=== PATIENT | male | born 1975 | race Caucasian/White ===

== ENCOUNTER 2018-05-23 20:54 | Emergency (ER) | payer BC, OTHER ==
[2018-05-23] MEDS ORDERED: CEPHALEXIN 500 MG CAP PO ONE (21:18)
[2018-05-23] MEDS ORDERED: TDAP ADULT 0.5 ML INJ (BOOSTRIX) IM ONE (21:18)
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
[2018-05-23 22:33] VITALS: BP 109/75
== END 2018-05-23 22:33 | disposition home or self-care (01) ==
PROC: 3E0234Z Introduction of Serum, Toxoid and Vaccine into Muscle, Percutaneous Approach (ICD-10-PCS; principal; 2018-05-23)
DX: S51.811A Laceration without foreign body of right forearm, initial encounter (principal); S50.811A Abrasion of right forearm, initial encounter; V18.0XXA Pedal cycle driver injured in noncollision transport accident in nontraffic accident, initial encounter; Y93.55 Activity, bike riding

== ENCOUNTER 2018-05-26 09:37 | Emergency (ER) | payer OTHER ==
[2018-05-26 09:42] VITALS: BP 122/73
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
== END 2018-05-26 10:29 | disposition home or self-care (01) ==
PROC: 0HQDXZZ Repair Right Lower Arm Skin, External Approach (ICD-10-PCS; principal; 2018-05-26)
DX: S51.011A Laceration without foreign body of right elbow, initial encounter (principal); V18.4XXA Pedal cycle driver injured in noncollision transport accident in traffic accident, initial encounter; Y93.55 Activity, bike riding